=== PATIENT | female | born 1935 | race African-American/Black ===

== ENCOUNTER 2019-06-25 12:35 | Inpatient (IN) ==
[2019-06-25 13:59] LABS: Apearance,Urine CLEAR (Clear); Bacteria,Urine Occasional /HPF (Few); Bilirubin,Urine Negative (Negative); Blood, Urine Negative (Negative); Glucose,Urine (UA) Negative (Negative); Ketones,Urine Negative (Negative); Nitrite,Urine Negative (Negative); Protein,Urine Negative; RBC,Urine 2 /HPF (0-4); Squamous Epithelial Cell,Urine Occasional /HPF (0-10); Urine Color Straw (Yellow); Urine Specific Gravity 1.006 (1.001-1.035); Urine Urobilinogen < 2.0 EU/DL (0.2-1.0); WBC,Urine 1 /HPF (0-6)
[2019-06-25 14:21] LABS: Basophils % 0.3 % (0.0-0.8); Eosinophils % 0.3 % (0.00-10.9); Hematocrit 36.1 VOL% (35.7-47.0); Immature Granulocytes % 1.1 %; Immature Granulocytes Absolute 0.11 #; Lymphocytes # 0.7 10*3/uL (1.4-4.0); Lymphocytes % 6.6 % (21.3-54.2); Mean Corpuscular HGB Conc 33.2 GM/DL (32-36); Mean Corpuscular Volume 101.1 FL (87-102); Monocytes % 16.3 % (1.7-12.7); Neutrophils % 75.4 % (38.7-73.9); Platelet Count 63 T/CUMM (130-400); Red Blood Count 3.57 MC/CUMM (3.8-5.5)
[2019-06-25 14:36] LABS: PT Patient Result 10.7 SECS (9.6-12.2); Partial Thromboplastin Time 24.6 SECS (20.8-36.0)
[2019-06-25 14:52] LABS: Albumin 3.7 G/DL (3.4-5.0); Bilirubin,Total 1.1 MG/DL (0.2-1.0); Calcium 9.2 MG/DL (8.5-10.1); Osmolality,Calculated 269.2 MOS/KG (273-304); Total Protein 6.4 G/DL (6.4-8.3)
[2019-06-25 16:42] LABS: Lymphocytes 8 % (20-55); Macrocytosis 1+; Platelet Estimate Decreased; Segmented Neutrophils 81 % (50-85); Total Cells Counted 100
[2019-06-25] MEDS ORDERED: ONDANSETRON 4 MG/2 ML VIAL IV PRN (17:13)
[2019-06-25] MEDS ORDERED: ACETAMINOPHEN 325 MG TABLET PO PRN (17:13)
[2019-06-25] MEDS: SODIUM CHLORIDE 0.9% 1,000 ML IV SCH (18:22)
[2019-06-25] MEDS: DOCUSATE SODIUM 100 MG CAPSULE PO SCH (20:53)
[2019-06-26] MEDS: SODIUM CHLORIDE 0.9% 1,000 ML IV SCH ×3 (01:25→19:08)
[2019-06-26 07:51] LABS: Basophils % 0.4 % (0.0-0.8); Eosinophils # 0.1 10*3/uL (0.0-0.87); Eosinophils % 1.5 % (0.00-10.9); Hemoglobin 12.4 GM/DL (12.0-16.0); Immature Granulocytes % 0.6 %; Immature Granulocytes Absolute 0.04 #; Lymphocytes # 1.7 10*3/uL (1.4-4.0); Mean Corpuscular HGB Conc 32.6 GM/DL (32-36); Mean Corpuscular Volume 101.9 FL (87-102); Mean Platelet Volume 10.5 FL (9.6-12.0); Monocytes % 18.6 % (1.7-12.7); Neutrophils % 54.9 % (38.7-73.9); Platelet Count 63 T/CUMM (130-400); Red Blood Count 3.73 MC/CUMM (3.8-5.5); Red Cell Distribution Width 17.3 % (9.3-17.3); White Blood Count 7.2 T/CUMM (4-12)
[2019-06-26 08:08] LABS: Eosinophils 2 % (0-10); Lymphocytes 18 % (20-55); Platelet Estimate Decreased; Segmented Neutrophils 60 % (50-85); Total Cells Counted 100
[2019-06-26 08:09] LABS: Hypochromasia 1+; Macrocytosis 1+
[2019-06-26 08:14] LABS: Calcium 8.6 MG/DL (8.5-10.1); Osmolality,Calculated 269.1 MOS/KG (273-304)
[2019-06-26] MEDS: TRIAMTERENE/HCTZ 75-50 MG TABLET PO SCH ×2 (10:44→21:10)
[2019-06-26] MEDS: DOCUSATE SODIUM 100 MG CAPSULE PO SCH ×2 (10:45→21:09)
[2019-06-26] MEDS: PANTOPRAZOLE 40 MG TABLET PO SCH (10:45)
[2019-06-26] MEDS: FLECAINIDE 50 MG TABLET PO SCH ×2 (10:45→21:09)
[2019-06-26] MEDS: CETIRIZINE 10 MG TABLET PO SCH (10:45)
[2019-06-26] MEDS: ALLOPURINOL 100 MG TABLET PO SCH (10:45)
[2019-06-26] MEDS: amLODIPine 5 MG TABLET PO SCH ×2 (10:45→21:10)
[2019-06-26] MEDS ORDERED: VANCOMYCIN INJ 1,000 MG in SODIUM CHLORIDE 0.9% 250 ML IV ONE (13:30)
[2019-06-27] MEDS: SODIUM CHLORIDE 0.9% 1,000 ML IV SCH ×3 (03:08→20:19)
[2019-06-27] MEDS: LEVOTHYROXINE 50 MCG TABLET PO SCH (06:29)
[2019-06-27 07:45] LABS: Basophils % 0.3 % (0.0-0.8); Eosinophils # 0.2 10*3/uL (0.0-0.87); Eosinophils % 2.2 % (0.00-10.9); Hemoglobin 11.1 GM/DL (12.0-16.0); Immature Granulocytes % 0.9 %; Immature Granulocytes Absolute 0.06 #; Lymphocytes # 1.6 10*3/uL (1.4-4.0); Lymphocytes % 23.5 % (21.3-54.2); Mean Corpuscular HGB Conc 32.6 GM/DL (32-36); Mean Corpuscular Volume 103.3 FL (87-102); Mean Platelet Volume 11.3 FL (9.6-12.0); Monocytes % 19.6 % (1.7-12.7); Neutrophils % 53.5 % (38.7-73.9); Platelet Count 63 T/CUMM (130-400); Red Blood Count 3.29 MC/CUMM (3.8-5.5); Red Cell Distribution Width 17.3 % (9.3-17.3); White Blood Count 6.9 T/CUMM (4-12)
[2019-06-27 08:00] LABS: Calcium 8.7 MG/DL (8.5-10.1); Osmolality,Calculated 282.1 MOS/KG (273-304)
[2019-06-27 08:09] LABS: Band Neutrophils 1 % (0-10); Eosinophils 4 % (0-10); Hypochromasia 1+; Lymphocytes 23 % (20-55); Ovalocytes Slight; Platelet Estimate Decreased; Segmented Neutrophils 57 % (50-85); Total Cells Counted 100
[2019-06-27] MEDS ORDERED: REGADENOSON 0.4 MG/5 ML SYRINGE IV ONE (08:15)
[2019-06-27] MEDS: VANCOMYCIN INJ 1,000 MG in SODIUM CHLORIDE 0.9% 250 ML IV SCH (09:30)
[2019-06-27] MEDS: TRIAMTERENE/HCTZ 75-50 MG TABLET PO SCH ×2 (09:34→20:17)
[2019-06-27] MEDS: CETIRIZINE 10 MG TABLET PO SCH (09:34)
[2019-06-27] MEDS: FLECAINIDE 50 MG TABLET PO SCH ×2 (09:35→20:17)
[2019-06-27] MEDS: ALLOPURINOL 100 MG TABLET PO SCH (09:35)
[2019-06-27] MEDS: PANTOPRAZOLE 40 MG TABLET PO SCH (09:36)
[2019-06-27] MEDS: DOCUSATE SODIUM 100 MG CAPSULE PO SCH ×2 (09:37→20:16)
[2019-06-27] MEDS: amLODIPine 5 MG TABLET PO SCH ×2 (09:45→20:17)
[2019-06-28] MEDS: SODIUM CHLORIDE 0.9% 1,000 ML IV SCH ×3 (01:41→21:32)
[2019-06-28] MEDS: VANCOMYCIN INJ 1,000 MG in SODIUM CHLORIDE 0.9% 250 ML IV SCH ×2 (02:40→21:08)
[2019-06-28 05:02] LABS: Basophils % 0.5 % (0.0-0.8); Eosinophils # 0.1 10*3/uL (0.0-0.87); Hemoglobin 9.3 GM/DL (12.0-16.0); Immature Granulocytes % 1.5 %; Immature Granulocytes Absolute 0.09 #; Lymphocytes # 1.5 10*3/uL (1.4-4.0); Lymphocytes % 24.3 % (21.3-54.2); Mean Corpuscular HGB Conc 32.1 GM/DL (32-36); Mean Corpuscular Volume 106.6 FL (87-102); Mean Platelet Volume 10.8 FL (9.6-12.0); Monocytes % 18.4 % (1.7-12.7); Neutrophils % 53.3 % (38.7-73.9); Platelet Count 50 T/CUMM (130-400); Red Blood Count 2.72 MC/CUMM (3.8-5.5); Red Cell Distribution Width 17.9 % (9.3-17.3); White Blood Count 6.1 T/CUMM (4-12)
[2019-06-28 05:23] LABS: Band Neutrophils 3 % (0-10); Lymphocytes 29 % (20-55); Metamyelocytes 1 %; Nucleated Red Blood Cells 1 (0-5); Ovalocytes Few; Platelet Estimate Decreased; Polychromasia Few; Segmented Neutrophils 53 % (50-85); Total Cells Counted 100
[2019-06-28 05:29] LABS: Calcium 7.4 MG/DL (8.5-10.1); Osmolality,Calculated 286.7 MOS/KG (273-304)
[2019-06-28] MEDS: LEVOTHYROXINE 50 MCG TABLET PO SCH (06:40)
[2019-06-28] MEDS ORDERED: POTASSIUM CHLORIDE 20 MEQ TABLET PO PRN (07:35)
[2019-06-28] MEDS ORDERED: POTASSIUM CHLORIDE RIDER 20 MEQ in PREMIX 1 EACH IV PRN (07:35)
[2019-06-28] MEDS ORDERED: MAGNESIUM SULF RIDER 4 GM in PREMIX 1 EACH IV PRN (09:20)
[2019-06-28] MEDS: FLECAINIDE 50 MG TABLET PO SCH ×2 (09:22→21:08)
[2019-06-28] MEDS: POTASSIUM CHLORIDE 20 MEQ TABLET PO SCH (09:22)
[2019-06-28] MEDS: ALLOPURINOL 100 MG TABLET PO SCH (09:22)
[2019-06-28] MEDS: DOCUSATE SODIUM 100 MG CAPSULE PO SCH ×2 (09:22→21:08)
[2019-06-28] MEDS: amLODIPine 5 MG TABLET PO SCH ×2 (09:22→21:07)
[2019-06-28] MEDS: TRIAMTERENE/HCTZ 75-50 MG TABLET PO SCH ×2 (09:22→21:07)
[2019-06-28] MEDS: CETIRIZINE 10 MG TABLET PO SCH (09:22)
[2019-06-28] MEDS: PANTOPRAZOLE 40 MG TABLET PO SCH (09:22)
[2019-06-28] MEDS: MAGNESIUM SULF RIDER 2 GM in PREMIX 1 EACH IV PRN (09:32)
[2019-06-29] MEDS: SODIUM CHLORIDE 0.9% 1,000 ML IV SCH (01:45)
[2019-06-29 05:49] LABS: Basophils % 0.4 % (0.0-0.8); Eosinophils # 0.2 10*3/uL (0.0-0.87); Hematocrit 28.7 VOL% (35.7-47.0); Hemoglobin 9.3 GM/DL (12.0-16.0); Immature Granulocytes % 1.4 %; Immature Granulocytes Absolute 0.08 #; Lymphocytes # 1.4 10*3/uL (1.4-4.0); Lymphocytes % 25.3 % (21.3-54.2); Mean Corpuscular HGB Conc 32.4 GM/DL (32-36); Mean Corpuscular Volume 103.6 FL (87-102); Mean Platelet Volume 10.5 FL (9.6-12.0); Monocytes % 17.5 % (1.7-12.7); Neutrophils % 52.4 % (38.7-73.9); Red Blood Count 2.77 MC/CUMM (3.8-5.5); Red Cell Distribution Width 17.5 % (9.3-17.3); White Blood Count 5.6 T/CUMM (4-12)
[2019-06-29 05:52] LABS: Platelet Count 53 T/CUMM (130-400)
[2019-06-29 06:11] LABS: Calcium 7.5 MG/DL (8.5-10.1); Osmolality,Calculated 290.3 MOS/KG (273-304)
[2019-06-29 06:29] LABS: Eosinophils 4 % (0-10); Hypochromasia 1+; Lymphocytes 28 % (20-55); Ovalocytes Slight; Platelet Estimate Decreased; Segmented Neutrophils 58 % (50-85); Total Cells Counted 100
[2019-06-29] MEDS: LEVOTHYROXINE 50 MCG TABLET PO SCH (06:44)
[2019-06-29] MEDS: amLODIPine 5 MG TABLET PO SCH (08:44)
[2019-06-29] MEDS: DOCUSATE SODIUM 100 MG CAPSULE PO SCH (08:44)
[2019-06-29] MEDS: POTASSIUM CHLORIDE 20 MEQ TABLET PO SCH (08:44)
[2019-06-29] MEDS: TRIAMTERENE/HCTZ 75-50 MG TABLET PO SCH (08:44)
[2019-06-29] MEDS: PANTOPRAZOLE 40 MG TABLET PO SCH (08:44)
[2019-06-29] MEDS: ALLOPURINOL 100 MG TABLET PO SCH (08:44)
[2019-06-29] MEDS: CETIRIZINE 10 MG TABLET PO SCH (08:44)
[2019-06-29] MEDS: POTASSIUM CHLORIDE RIDER 10 MEQ in PREMIX 1 EACH IV PRN ×2 (08:45→11:58)
[2019-06-29] MEDS: FLECAINIDE 50 MG TABLET PO SCH (08:45)
[2019-06-29 12:18] VITALS: BP 111/54
[2019-06-29] MEDS: MAGNESIUM SULF RIDER 2 GM in PREMIX 1 EACH IV PRN (13:06)
[2019-06-29] MEDS: VANCOMYCIN INJ 1,000 MG in SODIUM CHLORIDE 0.9% 250 ML IV SCH (15:10)
[2019-06-29] MEDS ORDERED: HEPARIN LOCK FLUSH 500 UNIT/5 ML SYRINGE IV ONE ×2 (15:16→15:23)
== END 2019-06-29 15:50 | disposition home or self-care (01) | DRG 204 ==
LOC: EDUNIT# → N.ED 12:35 → N.EDINP 12:35 → N.4E 18:01
PROVIDERS: ADMIT Family Medicine; ATTEND Family Medicine

== ENCOUNTER 2020-03-14 11:31 | Inpatient (IN) ==
[2020-03-14 12:24] LABS: Basophils % 0.3 % (0.0-0.8); Eosinophils # 0.2 10*3/uL (0.0-0.87); Eosinophils % 2.7 % (0.00-10.9); Hematocrit 32.9 VOL% (35.7-47.0); Hemoglobin 11.1 GM/DL (12.0-16.0); Immature Granulocytes % 0.7 %; Immature Granulocytes Absolute 0.04 #; Lymphocytes # 0.6 10*3/uL (1.4-4.0); Mean Corpuscular HGB Conc 33.7 GM/DL (32-36); Mean Corpuscular Volume 101.2 FL (87-102); Mean Platelet Volume 10.5 FL (9.6-12.0); Monocytes % 14.9 % (1.7-12.7); Neutrophils % 70.4 % (38.7-73.9); Platelet Count 93 T/CUMM (130-400); Red Blood Count 3.25 MC/CUMM (3.8-5.5); Red Cell Distribution Width 15.3 % (9.3-17.3); White Blood Count 5.8 T/CUMM (4-12)
[2020-03-14 12:37] LABS: Alanine Aminotransferase 18 U/L (13-56); Albumin 3.2 G/DL (3.4-5.0); Alkaline Phosphatase 136 U/L (45-117); Aspartate Amino Transferase 22 U/L (0-37); Bilirubin,Total < 0.39 MG/DL (0.2-1.0); Blood Urea Nitrogen 20 MG/DL (7-18); Calcium 8.4 MG/DL (8.5-10.1); Estimated Glom Filtration Rate 44 ML/MIN; Glucose 106 MG/DL (74-106); Osmolality,Calculated 246.1 MOS/KG (273-304); Total Protein 6.2 G/DL (6.4-8.3)
[2020-03-14 12:45] LABS: Platelet Estimate Decreased
[2020-03-14] MEDS ORDERED: SODIUM CHLORIDE 0.9% 1,000 ML IV STA (13:21)
[2020-03-14 13:31] LABS: Apearance,Urine CLEAR (Clear); Bilirubin,Urine Negative (Negative); Blood, Urine Negative (Negative); Glucose,Urine (UA) Negative (Negative); Ketones,Urine Negative (Negative); Nitrite,Urine Negative (Negative); Protein,Urine Negative; RBC,Urine 1 /HPF (0-4); Squamous Epithelial Cell,Urine Occasional /HPF (0-10); Urine Color Straw (Yellow); Urine Specific Gravity 1.006 (1.001-1.035); Urine Urobilinogen < 2.0 EU/DL (0.2-1.0); WBC,Urine <1 /HPF (0-6)
[2020-03-14 14:55] LABS: Calcium 8.5 MG/DL (8.5-10.1); Osmolality,Calculated 246.1 MOS/KG (273-304)
[2020-03-14] MEDS ORDERED: ONDANSETRON 4 MG/2 ML VIAL IV PRN (16:03)
[2020-03-14] MEDS ORDERED: DEXTROSE 50% 25 GM/50 ML VIAL IV PRN (16:03)
[2020-03-14] MEDS ORDERED: GLUCAGON 1 MG VIAL IM PRN (16:03)
[2020-03-14] MEDS ORDERED: SIMETHICONE CHEW 125 MG TABLET PO PRN (16:20)
[2020-03-14] MEDS ORDERED: ENOXAPARIN 40 MG/0.4 ML SYRINGE SUBCUT SCH (16:30)
[2020-03-14] MEDS: SODIUM CHLORIDE 0.9% 1,000 ML IV SCH (18:17)
[2020-03-14] MEDS ORDERED: SODIUM CHLORIDE 0.9% 1,000 ML IV ONE (21:00)
[2020-03-14] MEDS: FLECAINIDE 50 MG TABLET PO SCH (21:17)
[2020-03-14] MEDS: ZALEPLON 5 MG CAPSULE PO PRN (21:26)
[2020-03-14 23:20] LABS: Apearance,Urine CLEAR (Clear); Bilirubin,Urine Negative (Negative); Blood, Urine Negative (Negative); Glucose,Urine (UA) Negative (Negative); Ketones,Urine Negative (Negative); Nitrite,Urine Negative (Negative); Protein,Urine Negative; RBC,Urine 1 /HPF (0-4); Squamous Epithelial Cell,Urine Occasional /HPF (0-10); Urine Color Straw (Yellow); Urine Specific Gravity 1.004 (1.001-1.035); Urine Urobilinogen < 2.0 EU/DL (0.2-1.0)
[2020-03-15 05:03] LABS: Basophils % 0.4 % (0.0-0.8); Eosinophils # 0.2 10*3/uL (0.0-0.87); Eosinophils % 3.2 % (0.00-10.9); Hematocrit 28.9 VOL% (35.7-47.0); Hemoglobin 9.6 GM/DL (12.0-16.0); Immature Granulocytes % 0.4 %; Immature Granulocytes Absolute 0.02 #; Lymphocytes # 0.6 10*3/uL (1.4-4.0); Lymphocytes % 11.3 % (21.3-54.2); Mean Corpuscular HGB Conc 33.2 GM/DL (32-36); Mean Corpuscular Volume 102.8 FL (87-102); Mean Platelet Volume 10.7 FL (9.6-12.0); Monocytes % 15.4 % (1.7-12.7); Neutrophils % 69.3 % (38.7-73.9); Platelet Count 79 T/CUMM (130-400); Red Blood Count 2.81 MC/CUMM (3.8-5.5); Red Cell Distribution Width 15.7 % (9.3-17.3); White Blood Count 5.1 T/CUMM (4-12)
[2020-03-15 05:40] LABS: Calcium 8.1 MG/DL (8.5-10.1); Osmolality,Calculated 256.2 MOS/KG (273-304); Thyroid Stimulating Hormone 1.09 uIU/ml (0.358-3.74)
[2020-03-15] MEDS: LEVOTHYROXINE 50 MCG TABLET PO SCH (07:02)
[2020-03-15] MEDS: SODIUM CHLORIDE 0.9% 1,000 ML IV SCH ×2 (07:37→22:38)
[2020-03-15] MEDS: allopurinoL 100 MG TABLET PO SCH (09:25)
[2020-03-15] MEDS: FLECAINIDE 50 MG TABLET PO SCH ×2 (09:25→21:50)
[2020-03-15 11:00] LABS: Eosinophils 4 % (0-10); Lymphocytes 8 % (20-55); Polychromasia Slight; Segmented Neutrophils 79 % (50-85); Total Cells Counted 100
[2020-03-15 11:04] LABS: Platelet Estimate Decreased
[2020-03-15] MEDS: ZALEPLON 5 MG CAPSULE PO PRN (21:50)
[2020-03-16] MEDS: LEVOTHYROXINE 50 MCG TABLET PO SCH (05:47)
[2020-03-16] MEDS: SODIUM CHLORIDE 0.9% 1,000 ML IV SCH (05:48)
[2020-03-16 06:43] LABS: Calcium 7.9 MG/DL (8.5-10.1); Osmolality,Calculated 264.4 MOS/KG (273-304)
[2020-03-16] MEDS: FLECAINIDE 50 MG TABLET PO SCH (09:10)
[2020-03-16] MEDS: allopurinoL 100 MG TABLET PO SCH (09:10)
[2020-03-16 12:42] VITALS: BP 148/66
== END 2020-03-16 15:03 | disposition home health service (06) | DRG 641 ==
LOC: EDUNIT# → EDBD → N.ED 11:31 → N.EDINP 16:03 → N.4E 17:34
PROVIDERS: ADMIT Internal Medicine; ATTEND Internal Medicine

== ENCOUNTER 2020-11-04 08:12 | Inpatient (IN) ==
[2020-11-04] MEDS ORDERED: ALUM/MAG/SIMETH/LIDO VISC 1:1 30 ML BOTTLE PO STA (08:40)
[2020-11-04 09:21] LABS: Basophils % 0.1 % (0.0-0.8); Eosinophils % 0.4 % (0.00-10.9); Hematocrit 28.3 VOL% (35.7-47.0); Hemoglobin 8.6 GM/DL (12.0-16.0); Immature Granulocytes % 0.6 %; Immature Granulocytes Absolute 0.04 #; Lymphocytes # 0.7 10*3/uL (1.4-4.0); Lymphocytes % 9.7 % (21.3-54.2); Mean Corpuscular HGB Conc 30.4 GM/DL (32-36); Mean Corpuscular Volume 88.2 FL (87-102); Mean Platelet Volume 9.6 FL (9.6-12.0); Monocytes % 8.2 % (1.7-12.7); Platelet Count 188 T/CUMM (130-400); Red Blood Count 3.21 MC/CUMM (3.8-5.5); Red Cell Distribution Width 18.6 % (9.3-17.3); White Blood Count 6.8 T/CUMM (4-12)
[2020-11-04 09:26] LABS: Bilirubin,Urine Negative (Negative); Blood, Urine Small mg/dL (Negative); Glucose,Urine (UA) Negative (Negative); Hyaline Casts,Urine 1 /LPF (0-3); Ketones,Urine Negative (Negative); Mucus,Urine Occasional /LPF (Occasional); Nitrite,Urine Negative (Negative); Protein,Urine 100 MG/DL; RBC,Urine 2 /HPF (0-4); Squamous Epithelial Cell,Urine Occasional /HPF (0-10); Urine Appearance CLEAR (Clear); Urine Color Yellow (Yellow); Urine Specific Gravity 1.009 (1.001-1.035); Urine Urobilinogen < 2.0 EU/DL (0.2-1.0); WBC,Urine 8 /HPF (0-6)
[2020-11-04 09:41] LABS: Albumin 2.2 G/DL (3.4-5.0); Bilirubin,Total 0.6 MG/DL (0.2-1.0); Calcium 8.6 MG/DL (8.5-10.1); Total Protein 5.7 G/DL (5.0-7.5)
[2020-11-04 09:42] LABS: Osmolality,Calculated 270.2 MOS/KG (273-304); Potassium 2.9 MMOL/L (3.5-5.1)
[2020-11-04] MEDS ORDERED: POTASSIUM CHLORIDE 20 MEQ TABLET PO STA (11:04)
[2020-11-04] MEDS ORDERED: ONDANSETRON 4 MG/2 ML VIAL IV PRN (12:13)
[2020-11-04] MEDS ORDERED: hydrALAZINE 20 MG/1 ML VIAL IV PRN (12:13)
[2020-11-04] MEDS ORDERED: GLUCAGON 1 MG VIAL IM PRN (12:13)
[2020-11-04] MEDS ORDERED: ACETAMINOPHEN 325 MG TABLET PO PRN (12:13)
[2020-11-04] MEDS ORDERED: DOCUSATE SODIUM 100 MG CAPSULE PO PRN (12:13)
[2020-11-04] MEDS ORDERED: DEXTROSE 50% 25 GM/50 ML VIAL IV PRN (12:13)
[2020-11-04] MEDS ORDERED: guaiFENesin/DM ER 600-30 MG TABLET PO PRN (12:13)
[2020-11-04] MEDS ORDERED: ALUMINUM/MAGNES/SIMETH MAX STR 30 ML UDCUP PO PRN (12:20)
[2020-11-04] MEDS ORDERED: SODIUM CHLORIDE 0.9% 1,000 ML IV SCH (12:30)
[2020-11-04] MEDS: POTASSIUM CHLORIDE INJ 10 MEQ in SODIUM CHLORIDE 0.9% 1,000 ML IV SCH (20:02)
[2020-11-04] MEDS: PANTOPRAZOLE 40 MG VIAL IV SCH (20:09)
[2020-11-05] MEDS ORDERED: traZODone 50 MG TABLET PO PRN (07:14)
[2020-11-05] MEDS ORDERED: DOCUSATE SODIUM 100 MG CAPSULE PO PRN (07:14)
[2020-11-05 07:51] LABS: Basophils % 0.1 % (0.0-0.8); Eosinophils # 0.1 10*3/uL (0.0-0.87); Eosinophils % 0.8 % (0.00-10.9); Hematocrit 30.1 VOL% (35.7-47.0); Immature Granulocytes % 0.5 %; Immature Granulocytes Absolute 0.04 #; Lymphocytes % 13.8 % (21.3-54.2); Mean Corpuscular HGB Conc 29.9 GM/DL (32-36); Mean Corpuscular Volume 88.8 FL (87-102); Mean Platelet Volume 8.6 FL (9.6-12.0); Monocytes % 8.8 % (1.7-12.7); Platelet Count 176 T/CUMM (130-400); Red Blood Count 3.39 MC/CUMM (3.8-5.5); Red Cell Distribution Width 18.6 % (9.3-17.3); White Blood Count 7.5 T/CUMM (4-12)
[2020-11-05 08:06] LABS: INR 1.1; PT Patient Result 11.9 SECS (9.8-11.9)
[2020-11-05 08:19] LABS: Albumin 2.2 G/DL (3.4-5.0); Bilirubin,Total 0.6 MG/DL (0.2-1.0); Calcium 8.8 MG/DL (8.5-10.1); Potassium 4.1 MMOL/L (3.5-5.1); Risk Ratio 4.68; Total Protein 6.1 G/DL (5.0-7.5); VLDL CHOLESTEROL 21.6 MG/DL
[2020-11-05] MEDS ORDERED: LEVOTHYROXINE 50 MCG TABLET PO SCH (08:19)
[2020-11-05] MEDS: POTASSIUM CHLORIDE INJ 10 MEQ in SODIUM CHLORIDE 0.9% 1,000 ML IV SCH (08:33)
[2020-11-05] MEDS ORDERED: allopurinoL 100 MG TABLET PO SCH (09:00)
[2020-11-05] MEDS ORDERED: amLODIPine 5 MG TABLET PO SCH (09:00)
[2020-11-05] MEDS ORDERED: FLECAINIDE 50 MG TABLET PO SCH (09:00)
[2020-11-05] MEDS ORDERED: FUROSEMIDE 20 MG TABLET PO SCH (09:00)
[2020-11-05] MEDS ORDERED: cloNIDine 0.1 MG TABLET PO SCH (09:00)
[2020-11-05] MEDS: OFLOXACIN 0.3% OPH SOLN 5 ML BOTTLE LEFT EYE SCH ×2 (10:05→13:40)
[2020-11-05] MEDS: PANTOPRAZOLE 40 MG VIAL IV SCH (10:05)
[2020-11-05 12:10] VITALS: BP 133/60
[2020-11-06] MEDS ORDERED: LEVOTHYROXINE 50 MCG TABLET PO SCH (07:00)
== END 2020-11-05 15:48 | disposition home health service (06) | DRG 375 ==
LOC: EDUNIT# → EDBD → N.ED 08:12 → N.EDINP 12:13 → N.4E 14:02
PROVIDERS: ADMIT Internal Medicine; ATTEND Internal Medicine

== ENCOUNTER 2020-11-24 11:14 | Observation (INO) ==
[2020-11-24] MEDS ORDERED: ALUM/MAG/SIMETH/LIDO VISC 1:1 30 ML BOTTLE PO STA (11:46)
[2020-11-24 12:04] LABS: Basophils % 0.1 % (0.0-0.8); Eosinophils % 0.1 % (0.00-10.9); Hemoglobin 9.2 GM/DL (12.0-16.0); Immature Granulocytes % 0.6 %; Immature Granulocytes Absolute 0.06 #; Lymphocytes % 9.8 % (21.3-54.2); Mean Corpuscular HGB Conc 29.7 GM/DL (32-36); Mean Corpuscular Volume 89.1 FL (87-102); Mean Platelet Volume 9.9 FL (9.6-12.0); Monocytes % 7.2 % (1.7-12.7); Neutrophils % 82.2 % (38.7-73.9); Platelet Count 205 T/CUMM (130-400); Red Blood Count 3.48 MC/CUMM (3.8-5.5); Red Cell Distribution Width 17.2 % (9.3-17.3); White Blood Count 10.2 T/CUMM (4-12)
[2020-11-24 12:18] LABS: Alanine Aminotransferase 12 U/L (13-56); Alkaline Phosphatase 143 U/L (45-117); Aspartate Amino Transferase 53 U/L (0-37); Blood Urea Nitrogen 39 MG/DL (7-18); Calcium 8.1 MG/DL (8.5-10.1); Carbon Dioxide 26 MMOL/L (21-32); Estimated Glom Filtration Rate 23 ML/MIN; Glucose 111 MG/DL (74-106); Osmolality,Calculated 279.1 MOS/KG (273-304); Potassium 3.8 MMOL/L (3.5-5.1); Sodium 135 MMOL/L (136-145); Total Protein 5.9 G/DL (6.4-8.2)
[2020-11-24] MEDS ORDERED: SODIUM CHLORIDE 0.9% 1,000 ML IV STA (12:30)
[2020-11-24 13:01] LABS: PT Patient Result 11.2 SECS (9.8-11.9)
[2020-11-24] MEDS ORDERED: ONDANSETRON 4 MG/2 ML VIAL IV STA (16:07)
[2020-11-24] MEDS ORDERED: DEXTROSE 50% 25 GM/50 ML VIAL IV PRN (17:07)
[2020-11-24] MEDS ORDERED: GLUCAGON 1 MG VIAL IM PRN (17:07)
[2020-11-24] MEDS ORDERED: ONDANSETRON 4 MG/2 ML VIAL IV PRN (18:50)
[2020-11-24] MEDS ORDERED: BISACODYL 10 MG SUPP RECTAL ONE (18:53)
[2020-11-24] MEDS: SODIUM CHLOR 0.9% KCL 20 MEQ 20 MEQ/1,000 ML BAG IV SCH (20:45)
[2020-11-24] MEDS: HEPARIN 5,000 UNIT/1 ML VIAL SUBCUT SCH (20:46)
[2020-11-25] MEDS: HEPARIN 5,000 UNIT/1 ML VIAL SUBCUT SCH ×2 (04:26→12:17)
[2020-11-25 06:12] LABS: Basophils % 0.1 % (0.0-0.8); Hematocrit 29.8 VOL% (35.7-47.0); Hemoglobin 9.2 GM/DL (12.0-16.0); Immature Granulocytes % 0.5 %; Immature Granulocytes Absolute 0.05 #; Lymphocytes # 0.9 10*3/uL (1.4-4.0); Lymphocytes % 9.5 % (21.3-54.2); Mean Corpuscular HGB Conc 30.9 GM/DL (32-36); Mean Corpuscular Volume 87.4 FL (87-102); Mean Platelet Volume 9.5 FL (9.6-12.0); Monocytes % 9.2 % (1.7-12.7); Neutrophils % 80.7 % (38.7-73.9); Platelet Count 189 T/CUMM (130-400); Red Blood Count 3.41 MC/CUMM (3.8-5.5); Red Cell Distribution Width 17.1 % (9.3-17.3); White Blood Count 9.9 T/CUMM (4-12)
[2020-11-25 06:28] LABS: Calcium 8.3 MG/DL (8.5-10.1); Osmolality,Calculated 275.1 MOS/KG (273-304); Potassium 4.3 MMOL/L (3.5-5.1)
[2020-11-25] MEDS ORDERED: PANTOPRAZOLE 40 MG VIAL IV SCH (09:00)
[2020-11-25] MEDS ORDERED: MAGNESIUM HYDROXIDE SUSP 30 ML UDCUP PO ONE (10:00)
[2020-11-25] MEDS: SODIUM CHLOR 0.9% KCL 20 MEQ 20 MEQ/1,000 ML BAG IV SCH (11:01)
[2020-11-25 16:19] VITALS: BP 144/66
== END 2020-11-25 17:55 | disposition hospice, home (50) ==
LOC: N.EDINP 11:14 → N.ED 11:14 → N.3E 18:38
PROVIDERS: ADMIT Internal Medicine Geriatric Medicine; ATTEND Internal Medicine Geriatric Medicine

== ENCOUNTER 2020-11-28 12:28 | Observation (INO) ==
[2020-11-28] MEDS ORDERED: ONDANSETRON 4 MG/2 ML VIAL IV ONE (12:40)
[2020-11-28 13:18] LABS: Basophils % 0.2 % (0.0-0.8); Hematocrit 36.2 VOL% (35.7-47.0); Immature Granulocytes % 0.6 %; Lymphocytes # 1.1 10*3/uL (1.4-4.0); Lymphocytes % 6.9 % (21.3-54.2); Mean Corpuscular HGB Conc 30.4 GM/DL (32-36); Mean Corpuscular Volume 88.5 FL (87-102); Mean Platelet Volume 9.9 FL (9.6-12.0); Monocytes % 6.4 % (1.7-12.7); Neutrophils % 85.9 % (38.7-73.9); Platelet Count 210 T/CUMM (130-400); Red Blood Count 4.09 MC/CUMM (3.8-5.5); Red Cell Distribution Width 17.9 % (9.3-17.3); White Blood Count 16.3 T/CUMM (4-12)
[2020-11-28] MEDS ORDERED: SODIUM CHLORIDE 0.9% 500 ML IV STA (13:37)
[2020-11-28] MEDS ORDERED: METOCLOPRAMIDE 10 MG/2 ML VIAL IV STA (13:57)
[2020-11-28] MEDS ORDERED: LEVOFLOXACIN INJ 750 MG in PREMIX 1 EACH IV STA (14:17)
[2020-11-28 14:18] LABS: Bilirubin,Total 0.7 MG/DL (0.2-1.0); Calcium 8.1 MG/DL (8.5-10.1); Potassium 4.1 MMOL/L (3.5-5.1); Total Protein 5.4 G/DL (6.4-8.2)
[2020-11-28] MEDS ORDERED: GLUCAGON 1 MG VIAL IM PRN (15:21)
[2020-11-28] MEDS ORDERED: DEXTROSE 50% 25 GM/50 ML VIAL IV PRN (15:21)
[2020-11-28] MEDS ORDERED: HALOPERIDOL 5 MG/ML AMP IM PRN (15:23)
[2020-11-28] MEDS ORDERED: SODIUM CHLORIDE 0.9% 1,000 ML IV SCH (15:30)
[2020-11-28] MEDS ORDERED: hydrALAZINE 20 MG/1 ML VIAL IV PRN (15:38)
[2020-11-28] MEDS: HEPARIN 5,000 UNIT/1 ML VIAL SUBCUT SCH (21:00)
[2020-11-29 05:22] LABS: Hematocrit 30.5 VOL% (35.7-47.0); Immature Granulocytes % 0.6 %; Immature Granulocytes Absolute 0.07 #; Lymphocytes # 1.3 10*3/uL (1.4-4.0); Mean Corpuscular HGB Conc 29.5 GM/DL (32-36); Mean Corpuscular Volume 89.4 FL (87-102); Mean Platelet Volume 10.1 FL (9.6-12.0); Monocytes % 7.6 % (1.7-12.7); Neutrophils % 79.8 % (38.7-73.9); Red Blood Count 3.41 MC/CUMM (3.8-5.5); Red Cell Distribution Width 17.2 % (9.3-17.3)
[2020-11-29 05:25] LABS: Potassium 4.2 MMOL/L (3.5-5.1)
[2020-11-29 06:18] LABS: Platelet Count 166 T/CUMM (130-400); White Blood Count 10.8 T/CUMM (4-12)
[2020-11-29 07:07] LABS: Band Neutrophils 1 % (0-10); Lymphocytes 4 % (20-55); Segmented Neutrophils 88 % (50-85); Total Cells Counted 100
[2020-11-29 07:10] LABS: Hypochromasia 2+; Platelet Estimate Normal
[2020-11-29] MEDS: HEPARIN 5,000 UNIT/1 ML VIAL SUBCUT SCH (08:11)
[2020-11-29 11:38] VITALS: BP 132/69
== END 2020-11-29 14:35 | disposition hospice, home (50) ==
LOC: EDBD → EDUNIT# → N.ED 12:28 → N.EDINP 12:28 → N.5E 18:05
PROVIDERS: ADMIT Internal Medicine Geriatric Medicine; ATTEND Internal Medicine Geriatric Medicine